=== PATIENT | female | born 1975 | race Caucasian/White ===

== ENCOUNTER 2018-03-21 10:48 | Day surgery (SDC) | payer OTHER ==
--- NOTE | 2018-03-12 13:26 | PREOPHP ---
DATE OF ADMISSION: 03/21/2018 The patient is to have surgery with Dr. Timo Aguilar on 03/21/2018. REASON FOR CONSULTATION: Consultation requested by Dr. Timo Aguilar for medical evaluation and cesario arance of 43-year-old woman about to undergo surgery. Thank you, Dr. Aguilar, for allowing us to participate in care of this patient. HISTORY OF PRESENT ILLNESS: Bianca Montes De Oca, a 43-year-old woman, issues with her right hip is curr ently being admitted for correction of the above problem. PAST MEDICAL AND SURGICAL HISTORY: The patient has had no medical hospitalizations and has had arthr oscopic surgery on the right knee. Other than that, her only other hospitalization was for vaginal d elivery of her daughter. She has been generally healthy, has not broken any bones. MEDICATIONS: She is currently taking the following medications: 1. Synthroid 112 mcg a day. 2. Lopressor 12.5 mg p.o. b.i.d. 3. Vitamins. 3. Supplements. ALLERGIES: SHE IS NOT ALLERGIC TO ANY MEDICATIONS. SOCIAL HISTORY: The patient is , has 1 daughter. She does not smoke or drink alcohol. Drink s occasional diet sodas and has no difficulty sleeping at night and is employed. FAMILY HISTORY: Both parents are alive in their 60s, both healthy. Father has some blood pressure i ssues. Two siblings in good health. No family history to her knowledge of diabetes, heart, cancer o r stroke. There was some hypertension. REVIEW OF SYSTEMS: HEENT: Denies any significant headaches. CARDIORESPIRATORY: Occasional chest wall pain, but otherwise unremarkable. GASTROINTESTINAL: No melena or hematemesis. GENITOURINARY: No urgency, frequency. GYNECOLOGIC: Regular menses, up to date with her field professional. MUSCULOSKELETAL: Positive for right hip pain. NEUROPSYCHIATRIC: Positive for mild anxiety. GENERAL HEALTH: As above. PHYSICAL EXAMINATION: VITAL SIGNS: The patient's blood pressure was 136/80, pulse was 84 and regular, respirations were 18 , temperature 98.8. Height is 5 feet, 7 inches; weight 227 pounds. GENERAL: The patient was noted to be a well-developed, well-nourished female, alert and cooperative, in no apparent acute distress, oriented to time, place and person. HEENT: Head was atraumatic. Eyes: Pupils were equal, reacted to light and accommodation. Fundi we re benign. Tympanic membranes were unremarkable. Nose was negative. Mouth was unremarkable. Fair oral hygiene was present. NECK: Supple without any rigidity. Trachea was midline. Thyroid was within normal limits. Neck ve ins were flat. Carotid pulses were equal. No bruits were heard. BACK: Unremarkable. CHEST: Symmetrical. BREASTS AND AXILLARY: Did not reveal any obvious masses. LUNGS: Clear. HEART: Examination of the PMI is 5th intercostal space at the midclavicular line. A regular sinus r hythm was noted. No significant murmurs, rubs or gallops being elicited. ABDOMEN: Soft. Bowel sounds were noted. No significant organomegaly, masses or tenderness. GENITALIA AND PELVIRECTAL: Up to date with her field professional. EXTREMITIES: Do not reveal any clubbing, edema or cyanosis. Peripheral pulses were physiologic. SKIN: Moist and warm without any eruptions. No gross lymphadenopathy was noted. NEUROLOGIC: Grossly intact. IMPRESSION: 1. Torn labrum, right hip. 2. Hypothyroidism. 3. Hypertension/palpitations. 4. Metabolic syndrome. 5. Stable health. REVIEW OF LABORATORY AND OTHER DATA: Revealed the following: The patient's chemistry panel includin g electrolytes, glucose, BUN, creatinine, calcium, uric acid, liver function tests, test, C BC, UA, PT and PTT were basically normal. The patient's EKG revealed some nonspecific T-wave changes and the patient's chest x-ray revealed no acute infiltrates nor were there any acute cardiopulmonary changes being noted. DISCUSSION: Dr. Aguilar, I see no contraindications the patient undergoing current proposed surgery under desired form of anesthesia. I feel she is a suitable candidate at this particular point in [facility]. Should any medical problems arise during her stay at [facility], we will be more than lan ppy to follow her along with you. Thank you again, Dr. Aguilar, for allowing us to participate in the care of this patient. Dictated By: KRISHAN LOWE MD SS/NTS Conf#: [id number] DID#: [id number] CC: TIMO AGUILAR MD;*EndCC*
[2018-03-21] VITALS (11 sets, daily range): BP systolic 113–132; BP diastolic 49–76; PULSE 82–114; RESP 13–21; Ht 170.2 cm; Wt 100.7 kg
[~2018-03-21] VITALS: Ht 170.2 cm; Wt 100.7 kg
--- NOTE | 2018-03-21 06:10 | HPN ---
Date/Time of Note Date/Time of Note DATE: 03/21/18 TIME: 06:09 Interval H&P Admission Note Pt. seen H&P reviewed: No system changes TIMO RIVERA MD Mar 21, 2018 06:10
--- NOTE | 2018-03-21 06:12 | OPR ---
Date/Time of Note Date/Time of Note DATE: 03/21/18 TIME: 06:10 Operative Report Procedure Date: Mar 21, 2018 Preoperative Diagnosis Right hip labral tear Postoperative Diagnosis 1. Right hip labral tear 2. Right hip pincer impingement Operation/Procedure Performed 1. Right hip arthroscopic labral repair acetabular takedown and chondroplasty of acetabulum Surgeon see signature line Bricklayer Jason Hansen DO Second Bricklayer: SIA RAMIREZ PA-C Anesthesia Type: general Estimated Blood Loss: minimal Transfusion none Specimen None Grafts/Implants See op note Complications none Pt Condition Post Procedure: stable Disposition: PACU Procedure Description INDICATIONS FOR PROCEDURE AND SUMMARY: This patient has the clinical problem of femoroacetabular impingement. Essentially, there is an overgrowth of the f acetabulum that is leading to the clinical problem of a torn labrum with its mechanical symptomatology and pain. The surgical procedure involves first a diagnostic arthroscopy and debridement or repair of the labral tear, followed by a separate entrance into the area of the impingement lesion. TRADE CLERK SURGEON: Jason Hansen DO was asked to be present at my request as a result of the significant surgical complexity associated with this procedure. Specifically, the arthroscopic resection of the femoral neck requires expert assistance with respect to the positioning of the arthroscope, which is a 70- degree arthroscope, while the surgeon exchanges instruments to perform the resection and labral repair. In my opinion, the assistance offered by a surgical coder is not sufficient as a result of their lack of training with these instruments. He should therefore be compensated for his time. PROCEDURE: Following the administration of general anesthesia supplemented with local anesthetic, the patient was placed in the supine position on the [employer] hip traction device. All prominences were properly padded, including the perineum and the ipsilateral arm. Examination of the right hip revealed a range of motion of 10 degrees of internal rotation with 90 of flexion. External rotation at 90 degrees with 60 degrees. The right hip was prepped and draped in the usual sterile fashion. The leg was then placed in traction. Under fluoroscopic guidance, anterior and anterolateral portals were then established in the central compartment. CENTRAL COMPARTMENT DIAGNOSTIC: Examination revealed areas of grade 4 chondral delamination in the acetabulum. The area extended from the 1:00 to the 8'clock position with about 10 mm into the articular surface of the acetabulum. It was a very large chondral flap. The labrum was disrupted in that entire arc as well. In the sub-labral recess, it was noted that there was a ossicle anteriorly which was loose and was generating the looseness of the labrum. The labral detachment extended from approximately 12 to the 7 o'clock position. The ligamentum teres was currently synovitic. There were some small osteophytes in the notch as well. The femoral cartilage revealed some mild diffuse grade 2 changes including into the peripheral compartment. CENTRAL COMPARTMENT PROCEDURE: The shaver and the ablator were then inserted. A limited capsulotomy was then performed over the area of the labral detachment. The sublabral recess was then cleared of soft tissue there and a bony resection of the anterior inferior iliac spine was then undertaken back to a normal configuration. Endoscopic and fluoroscopic visualization were used for confirmation. The chondral delamination was then addressed with a chondroplasty employing a combination of curettes, camelia a. A good bleeding bed was established. In the end, the area measured 10 mm into the articular margin from 12:00 to about the 7 o'clock position. Following the resection and preparation, the labral repair was undertaken. Two sutures then passed around the labrum. Each incorporated into a Arthrex Push Lock anchor. The anchors were impacted, and the suture advanced and a solid repair was completed. Flexion of the leg after removal of traction showed a good labral seal. The arthroscopic equipment was then removed. The leg was taken out of traction and repositioned to 45 of flexion with neutral rotation. The anterior portal was then used for entry into the peripheral compartment while using fluoroscopic localization for the appropriate portal position along the femoral neck. PERIPHERAL COMPARTMENT DIAGNOSTIC: Endoscopic examination revealed a good labral seal. Further evaluation revealed the peripheral femoral cartilage there were diffuse grade 2 changes throughout. With regards to a cam lesion, there was none. The arthroscopic equipment was then removed, following thorough irrigation of the joint to assure that all bony debris was cleared. The wounds were closed using #4-0 Monocryl sutures, followed by a sterile dressing. The patient was then extubated and transported to the recovery room in stable condition, having tolerated the procedure well. TIMO RIVERA MD Mar 21, 2018 06:12
[~2018-03-21 10:48] MED LIST: BUPIVACAINE 0.5% (SDV) 30 ML, morphine SULFATE (PF) 8 MG, EPINEPHrine 0.3 MG, KETOROLAC... IRR SCH; CEFAZOLIN 2 GM/50 ML (PMX) 50 ML IVPB ONE; DESFLURANE 15 MIN ONE; DEXAMETHASONE 1 MG TAB PO ONE; GABAPENTIN 300 MG CAP PO ONE; ROCURONIUM 50 MG INJ ONE; TRANEXAMIC ACID 1,000 MG in DEXTROSE 5% 100 ML IVPB ONE
[2018-03-21] MEDS ORDERED: LEVO112T2 PO (11:38)
[2018-03-21] MEDS ORDERED: METO-448 PO (11:38)
--- NOTE | 2018-03-21 14:58 | PREAC ---
Date/Time of Note Date/Time of Note DATE: 03/21/18 TIME: 14:53 Anesthesia Eval and Record Evaluation Time Pre-Procedure Interview DATE: 03/21/18 TIME: 14:53 Age 43 Sex female NPO: 8 hrs Preoperative diagnosis labral tear from hip deformity Planned procedure right hip arthroscopy debridement with lateral repair Past Medical History Past Medical History: Includes Cardio: Arrythmia Endo: Hypothyroid Surgery & Anesthesia Issues No known issue Meds Anticoagulation: No Beta Ivonne within 24 hr: Yes Reason Beta Ivonne not given: Pt. not on B-Ivonne Reported Medications Metoprolol Tartrate* (Lopressor*) 25 Mg Tab, 12.5 MG PO BID, #60 TAB 03/21/18 Levothyroxine Sodium* (Synthroid*) 112 Mcg Tablet, 112 MCG PO BEFORE BREAKFAST, #30 TAB 03/21/18 Current Medications Bupivacaine HCl/ Morphine Sulfate/ Epinephrine/ Ketorolac Tromethamine/ Clonidine/Sodium Chloride/ Vancomycin HCl INTRA-OP IRR ; Start 03/21/18 at 06:00 Meds reviewed: Yes Allergies Coded Allergies: No Known Allergies (Verified Allergy, Unknown, 03/21/18) Allergies Reviewed: Yes Labs/Studies Labs Reviewed: Reviewed by anesthesiologist test: Negative Pre-procedure Exam Last vitals Vital Signs Date Temp Pulse Resp B/P (MAP) Pulse Ox O2 O2 Flow FiO2 Time Delivery Rate 03/21/18 96.5 82 16 130/75 98 Room Air 12:01 (93) Airway: Adequate mouth opening, Adequate thyromental dist Mallampati: Mallampati III Teeth: Normal Lung: Normal Heart: Normal ASA Physical Status ASA physical status: 2 Emergency: None Pre-operative Attestations Prior to commencing anesthesia and surgery, the patient was re-evaluated, there was verification of: *The patient's identity *The results of appropriate recent lab work and preoperative vital signs *The above evaluation not changing prior to induction *Anesthetic plan, risk benefits, alternative and complications discussed with patient/family; questions answered; patient/family understands, accepts and wishes to proceed. ELISABETH RICK DO Mar 21, 2018 14:58
[2018-03-21] MEDS ORDERED: PROPOFOL 20 ML ONE (15:00)
[2018-03-21] MEDS ORDERED: LIDOCAINE 1% (MDV) 20 ML INJ ONE (15:00)
[2018-03-21] MEDS ORDERED: MIDAZOLAM 1 MG/ML 2 ML INJ ONE (15:00)
[2018-03-21] MEDS ORDERED: FENTAnyl 50 MCG/ML VIAL ONE (15:00)
[2018-03-21] MEDS ORDERED: SCOPOLAMINE 1.5 MG PATCH ONE (15:05)
[2018-03-21] MEDS ORDERED: PHENYLephrine (100 MCG/ML) 5ML SYG ONE (15:44)
[2018-03-21] MEDS ORDERED: CEFAZOLIN 1 GM INJ ONE (15:48)
[2018-03-21] MEDS ORDERED: METOCLOPRAMIDE 10 MG INJ ONE (16:18)
[2018-03-21] MEDS ORDERED: FAMOTIDINE 20 MG INJ ONE (16:18)
[2018-03-21] MEDS ORDERED: DEXAMETHASONE 4 MG/ML 5 ML INJ ONE (16:18)
[2018-03-21] MEDS ORDERED: ONDANSETRON 4 MG INJ ONE (16:18)
--- NOTE | 2018-03-21 16:57 | PDOCDIS ---
Discharge Instructions DIAGNOSIS Discharge Diagnosis Hip labral tear CONDITION [id number] Patient Condition: [id number] Good HOME CARE INSTRUCTIONS: [id number] Diet Instructions: [id number] Regular ACTIVITY: [id number] Activity Restrictions: [id number] Slowly Increase Activity [id number] Bathing Restrictions: [id number] Shower FOLLOW UP/APPOINTMENTS Follow-up Plan 2 weeks SCHOOL/WORK RELEASE May return to School/Work with: With Restrictions School/Work Release Comment: Crutches with foot flat weightbearing for 4 weeks TIMO RIVERA MD Mar 21, 2018 16:56
[2018-03-21] MEDS ORDERED: GLYCOPYRROLATE 0.4 MG INJ ONE (17:02)
[2018-03-21] MEDS ORDERED: NEOSTIGMINE 3 MG/3 ML SYRINGE ONE (17:02)
[2018-03-21] MEDS ORDERED: HYDROmorphONE 1 MG/5 ML IV SYRINGE IV PRN ×3 (17:30)
[2018-03-21] MEDS ORDERED: morphine (1 MG/ML) 10ML SYRINGE IV PRN (17:30)
[2018-03-21] MEDS ORDERED: KETOROLAC 30 MG INJ IV PRN (17:30)
[2018-03-21] MEDS ORDERED: FENTAnyl 50 MCG/ML VIAL IV PRN ×3 (17:30)
[2018-03-21] MEDS ORDERED: OXYCODONE/ACETAMINOPHEN (5/325) TAB PO PRN (17:30)
[2018-03-21] MEDS ORDERED: hydrALAzine 20 MG INJ IV PRN (17:30)
[2018-03-21] MEDS ORDERED: ONDANSETRON 4 MG INJ IV PRN (17:30)
[2018-03-21] MEDS ORDERED: METOCLOPRAMIDE 10 MG INJ IV PRN (17:30)
[2018-03-21] MEDS ORDERED: LABETALOL HCL 20MG INJ IV PRN (17:30)
[2018-03-21] MEDS ORDERED: HYDROmorphONE 1 MG/5 ML IV SYRINGE IV ONE (17:31)
[2018-03-21] MEDS ORDERED: KETOROLAC 30 MG INJ ONE (17:31)
--- NOTE | 2018-03-21 17:47 | PAC ---
Date/Time of Note Date/Time of Note DATE: 03/21/18 TIME: 17:47 Post-Anesthesia Notes Post-Anesthesia Note Last documented vital signs Vital Signs Date Temp Pulse Resp B/P (MAP) Pulse Ox O2 O2 Flow FiO2 Time Delivery Rate 03/21/18 98 75 15 120/65 100 1700 Activity: WNL Respiratory function: WNL Cardiovascular function: WNL Mental status: Baseline Pain reasonably controlled: Yes Hydration appropriate: Yes Nausea/Vomiting absent: Yes ELISABETH RICK DO Mar 21, 2018 17:47
== END 2018-03-21 18:29 | disposition home or self-care (01) ==
LOC: SDS 10:48
PROVIDERS: ATTEND Orthopaedic Surgery
DX: S73.101A Unspecified sprain of right hip, initial encounter (principal); M25.851 Other specified joint disorders, right hip; E03.9 Hypothyroidism, unspecified; X58.XXXA Exposure to other specified factors, initial encounter; Y93.89 Activity, other specified; Y92.89 Other specified places as the place of occurrence of the external cause; Y99.8 Other external cause status
CPT/HCPCS: 29916; 73525; J0171; J0690; J0735; J1100; J1170; J1885; J2250; J2274; J2405; J2710; J2765; J3010; J3370; 84703; J2370